=== PATIENT | female | born 1940 | race Caucasian/White ===

== ENCOUNTER 2024-05-02 22:36 | Emergency (ER) | payer MEDICARE, SELFPAY ==
--- NOTE | 2024-05-02 22:46 | CRLHL7_ITS ---
For Patients: As a result of the Cures Act, medical imaging exams and procedure reports are released immediately into your electronic medical record. You may view this report before your referring provider. If you have questions, please contact your health care provider. INDICATION: Trauma, fall. TECHNIQUE: CT cervical spine without contrast. COMPARISON: None. FINDINGS: Vertebrae: Alignment is normal. There are no fractures or suspicious bony lesions. Discs and facet joints: There are degenerative disc changes most severe at C4-C5 and C5-C6. There are multilevel degenerative changes in the facets. Extraspinal findings: Paraspinous soft tissues are unremarkable. IMPRESSION: 1. No acute fracture or traumatic subluxation of the cervical spine. 2. Multilevel degenerative spondylosis. Please note that all CT scans at this facility use dose modulation, iterative reconstruction, and/or weight-based dosing when appropriate to reduce radiation dose to as low as reasonably achievable. Dictated by Rehan Barton MD @ 05/03/2024 12:52:40 AM (Electronically Signed)
--- NOTE | 2024-05-02 22:46 | CRLHL7_ITS ---
For Patients: As a result of the Century Cures Act, medical imaging exams and procedure reports are released immediately into your electronic medical record. You may view this report before your referring provider. If you have questions, please contact your health care provider. INDICATION: Trauma, fall. TECHNIQUE: CT head without contrast. COMPARISON: None. FINDINGS: CSF spaces: Proportionate prominence of the ventricles and sulci, reflecting mild generalized cerebral volume loss. Brain parenchyma: The zafar-white differentiation is maintained. Patchy white matter low attenuation changes, nonspecific but likely reflecting mild chronic small vessel ischemic disease. No sign of mass, hemorrhage, or midline shift. Skull base and calvarium: The visualized paranasal sinuses and mastoid air cells demonstrate no acute or significant findings. The visualized orbits are grossly unremarkable. No skull fractures. IMPRESSION: No acute intracranial abnormality. Please note that all CT scans at this facility use dose modulation, iterative reconstruction, and/or weight-based dosing when appropriate to reduce radiation dose to as low as reasonably achievable. Dictated by Rehan Barton MD @ 05/03/2024 12:51:31 AM (Electronically Signed)
--- NOTE | 2024-05-02 22:46 | CRLHL7_ITS ---
For Patients: As a result of the Century Cures Act, medical imaging exams and procedure reports are released immediately into your electronic medical record. You may view this report before your referring provider. If you have questions, please contact your health care provider. INDICATION: Trauma. TECHNIQUE: Multiplanar CT examination of the chest was performed after the administration of 75 mL of Isovue 370 intravenous contrast. COMPARISON: None. FINDINGS: Lines/devices: Left anterior chest wall pacemaker pulse generator. Lower neck: The visualized thyroid is unremarkable. Cardiovascular: Contrast opacification of the pulmonary arterial tree is adequate. Borderline heart size. Normal thoracic aorta caliber. The main pulmonary artery is dilated measuring 3.3 cm. Moderate atherosclerotic calcifications of the aortic arch. Dense coronary arterial calcifications. No central pulmonary embolus. Mediastinum and lymph nodes: Unremarkable. No pathologic mediastinal or hilar lymphadenopathy by size criteria. Lungs: No focal consolidation. Dependent atelectasis. Linear bandlike opacification of the lung bases bilaterally, likely subsegmental atelectasis and/or scarring. Mild pulmonary vascular congestion and interstitial edema. Airways: Trachea remains patent and midline. Mild diffuse peribronchial wall thickening. Pleura: Small left pleural effusion. No pneumothorax. Chest wall: Unremarkable. Bones: Acute displaced fractures of the left 4th-9th ribs. The left 6th and 7th ribs are fractured at both their posterior and lateral aspects. Mild degenerative changes of the thoracic spine. Median sternotomy wires. Upper abdomen: Calcified splenic and hepatic granulomas. Otherwise, the visualized upper abdomen appears within normal limits. IMPRESSION: Acute displaced fractures of the left 4th through 9th ribs, with a small associated pleural effusion. No pneumothorax. The left 6 and 7th ribs are fractured at both the posterior and lateral aspects. Please note that all CT scans at this facility use dose modulation, iterative reconstruction, and/or weight-based dosing when appropriate to reduce radiation dose to as low as reasonably achievable. Dictated by Dean Delcid MD @ 05/03/2024 12:26:33 AM (Electronically Signed)
--- NOTE | 2024-05-02 22:47 | ED_ITS ---
HPI - General Adult General Date Seen: 05/02/24 Chief complaint: Fall/Minor Trauma Stated complaint: fell, hit head Time Seen by Provider: 05/02/24 22:39 Source: patient and family Mode of arrival: ambulatory Limitations: no limitations History of Present Illness HPI narrative: Patient is an 83-year-old woman, visiting here from [place]. She is anticoagulated secondary to history of atrial fibrillation. She had a fall tonight off couple of stairs, landing on her back in some rocks and pushes. She notes pain primarily in the left periscapular area, difficulty breathing due to pain. She did hit her head, denies loss of consciousness. Denies neck pain or severe headache. She does have some nausea. Denies back pain otherwise, denies extremity trauma. She notes that she is allergic to some antibiotic although she does not remember the name. She does have a history of a mitral valve repair but denies anticoagulation due to valve replacement. She does not smoke or drink. Related Data Home Medications ?Medication ?Instructions ?Recorded ?Confirmed rivaroxaban 10 mg tablet (Xarelto) 10 mg PO DAILY 05/02/24 05/02/24 Allergies Allergy/AdvReac Type Severity Reaction Status Date / Time No Known Drug Allergies Allergy Verified 05/02/24 22:59 Review of Systems Status of ROS: Reports: 10 or more systems reviewed and unremarkable except as noted in History and below [facility] Social History Smoking Status: Never smoker Second hand tobacco smoke exposure: No How often do you have a drink containing alcohol: never AUDIT-C Alcohol total score: 0 Non-prescribed substance use: denies use Exam Narrative: Exam Narrative: Primary survey: Airway: Patent. Breathing: Nonlabored. Lungs clear. Circulation: Pulses intact. No external bleeding. Disability: GCS 15. Secondary survey: Vital signs reviewed In general, an alert, nontoxic elderly woman. She does look uncomfortable. Head: Normocephalic, atraumatic. Eyes: Pupils are equal reactive. Extraocular movements full. ENT: No facial trauma. Dentition intact. Neck: No midline cervical tenderness. No anterior neck trauma. Chest: No visible signs of chest trauma. No tenderness to palpation. Heart regular rate and rhythm. Lungs clear bilaterally. Abdomen: No visible signs of trauma. Soft, nondistended, nontender to palpation. Back: No visible signs of trauma. Tenderness over the periscapular area and left posterior mid ribs. No crepitus or subcu air. Extremities: Atraumatic and nontender to palpation. Neurologic: Alert, conversant, moves all extremities to command. Skin: Warm and dry, no abrasions or lacerations. Const: Vital Signs, click to edit/add: Vital Signs - 24 hr 05/02/24 22:55 05/02/24 22:57 Temperature 98.1 F Pulse Rate [Right Pulse Oximeter] 86 Respiratory Rate 20 Blood Pressure [Ri ght Upper Arm] 148/78 H Pulse Oximetry 97 99 Oxygen Delivery Me thod Room Air Documenting provider has reviewed patient's vital signs: yes Course Course ED Course: Plan will be to establish an IV, give some morphine and Zofran for symptomatic control. I do think it is worthwhile at her age him with anticoagulation to scan her head and cervical spine as well as her chest to look for rib fractures, pulmonary contusion, hemorrhage etcetera. Patient's pain is somewhat improved after morphine although she still notes considerable pain. CT scan by my review showed multiple left posterior rib fractures as well as a little bit of pleural fluid, radiology reads scan as follows:FINDINGS: Lines/devices: Left anterior chest wall pacemaker pulse generator. Lower neck: The visualized thyroid is unremarkable. Cardiovascular: Contrast opacification of the pulmonary arterial tree is adequate. Borderline heart size. Normal thoracic aorta caliber. The main pulmonary artery is dilated measuring 3.3 cm. Moderate atherosclerotic calcifications of the aortic arch. Dense coronary arterial calcifications. No central pulmonary embolus. Mediastinum and lymph nodes: Unremarkable. No pathologic mediastinal or hilar lymphadenopathy by size criteria. Lungs: No focal consolidation. Dependent atelectasis. Linear bandlike opacification of the lung bases bilaterally, likely subsegmental atelectasis and/or scarring. Mild pulmonary vascular congestion and interstitial edema. Airways: Trachea remains patent and midline. Mild diffuse peribronchial wall thickening. Pleura: Small left pleural effusion. No pneumothorax. Chest wall: Unremarkable. Bones: Acute displaced fractures of the left 4th-9th ribs. The left 6th and 7th ribs are fractured at both their posterior and lateral aspects. Mild degenerative changes of the thoracic spine. Median sternotomy wires. Upper abdomen: Calcified splenic and hepatic granulomas. Otherwise, the visualized upper abdomen appears within normal limits. IMPRESSION: Acute displaced fractures of the left 4th through 9th ribs, with a small associated pleural effusion. No pneumothorax. The left 6 and 7th ribs are fractured at both the posterior and lateral aspects. Head CT by my review was negative, cervical spine in did not see any acute fractures. Head read by radiology is negative, cervical spine read as negative for any acute pathology, she has multilevel spondylosis. Given multiple rib fractures, I recommended transfer to a trauma facility. This required a couple of different phone calls to find bed availability, and I am told that there was no ambulance availability until the morning. Right now, she is hemodynamically stable, she is not requiring supplemental oxygen. Assuming she remains stable, plan will be to have her here in the ER overnight and then transfer in the morning. If there is any evidence of deterioration, would need to arrange for alternate transportation. Repeat hemoglobin ordered. She was accepted at [facility], they are aware of the delay. Update: Apparently an [facility] rig may be available to transfer patient. She had 4 mg of additional morphine for pain control, subsequently was placed on a little oxygen. Vital signs otherwise remain stable. Vital Signs Vital signs: Initial Vital Signs Pulse Oximetry 97 05/02/24 22:55 Vital Signs Pulse Oximetry 97 05/02/24 22:55 Temperature 98.1 F 05/02/24 22:57 Pulse Rate 86 05/02/24 22:57 Respiratory Rate 20 05/02/24 22:57 Blood Pressure 148/78 H 05/02/24 22:57 Pulse Oximetry 99 05/02/24 22:57 Oxygen Delivery Method Room Air 05/02/24 22:57 Medications Administered Medications: Generic Name Dose Route Start Last Admin Trade Name Freq PRN Reason Stop Dose Admin Morphine Sulfate 4 mg 05/03/24 00:57 05/03/24 01:02 Morphine 4 Mg/Ml Inj IVP 4 mg ONCE PRN Administration pain Discontinued Medications Generic Name Dose Route Start Last Admin Trade Name Freq PRN Reason Stop Dose Admin Morphine Sulfate 4 mg 05/02/24 22:45 05/02/24 22:54 Morphine 4 Mg/Ml Inj IVP 05/02/24 22:46 4 mg ONCE ONE Administration Ondansetron HCl 4 mg 05/02/24 22:45 05/02/24 22:54 Ondansetron 2 Mg/Ml Inj IVP 05/02/24 22:46 4 mg ONCE ONE Administration Medical Decision Making Lab Data Labs: Lab Results 05/02/24 05/02/24 Range/Units 22:50 22:54 WBC 7.62 (4.50-11.00) K/uL RBC 4.22 (4.00-5.20) m/uL Hgb 13.0 (12.0-16.0) gm/dL Hct 40.1 (33.0-51.0) % MCV 95 (80-100) fL MCH 31 (26-34) pg MCHC 32 (32-36) gm/dL RDW Coeff of Daysi 13.4 (11.5-15.5) % Plt Count 211 (140-440) K/uL Neut % (Auto) 50.5 (42.0-72.0) % Lymph % (Auto) 36.0 (20-44) % [place] % (Auto) 5.5 (0.0-11.0) % Eos % (Auto) 5.5 (0.0-7.0) % Baso % (Auto) 0.3 (0.0-3.0) % Neut # (Auto) 3.85 (1.7-7.0) K/uL Lymph # (Auto) 2.74 (0.90-2.90) K/uL [place] # (Auto) 0.40 (0.00-0.90) K/UL Eos # (Auto) 0.42 (0.00-0.50) K/uL Baso # (Auto) 0.02 (0.00-0.30) K/uL Abs Immat Gran (auto) 0.17 (0.00-0.30) K/uL Imm/Tot Granulo (auto) 2.2 % INR 2.15 H (0.91-1.10) Sodium 139 (135-149) mmol/L Potassium 4.1 (3.6-5.1) mmol/L Chloride 108 (96-114) mmol/L Carbon Dioxide 24 (20-32) mmol/L Anion Gap 7 (7-15) mEq/L BUN 29 (7-30) mg/dL Creatinine 1.1 (0.5-1.5) mg/dL Estimated Creat Clear 37.55 Estimated GFR 50 ml/min Glucose 139 H (60-115) mg/dL Calcium 9.1 (8.4-10.6) mg/dL POC Creatinine 1.2 (0.6-1.3) mg/dl Discharge Plan Discharge Clinical Impression: Closed traumatic displaced fracture of rib on left side Condition: Stable Prescriptions: No Action Xarelto 10 mg tablet 10 mg PO DAILY Follow Up/Referrals: Provider,Not a Local [Primary Care Provider] -
[2024-05-02] MEDS: MORPHINE 4 MG/ML INJ IVP (22:54)
[2024-05-02] MEDS: ONDANSETRON 2 MG/ML inj 4 MG IVP (22:54)
[2024-05-02 22:55] VITALS: O2SAT 97
[2024-05-02 22:56] LABS: Creatinine, Point-of-Care* 1.2 mg/dl (0.6-1.3)
[2024-05-02 22:57] VITALS: BP 148/78; PULSE 86; RESP 20; TEMP 36.7; O2SAT 99; BMI 27.9
[2024-05-02 22:59] LABS: Basophils Absolute Auto 0.02 K/uL (0.00-0.30); Basophils Percent Auto 0.3 % (0.0-3.0); Eosinophils Absolute Auto 0.42 K/uL (0.00-0.50); Eosinophils Percent Auto 5.5 % (0.0-7.0); Hematocrit 40.1 % (33.0-51.0); Immature Granulocytes Abs Auto 0.17 K/uL (0.00-0.30); Immature Granulocytes Pct Auto 2.2 %; Lymphocytes Absolute Auto 2.74 K/uL (0.90-2.90); Mean Corpuscular HGB Conc 32 gm/dL (32-36); Mean Corpuscular Hemoglobin 31 pg (26-34); Mean Corpuscular Volume 95 fL (80-100); Monocytes Percent Auto 5.5 % (0.0-11.0); Neutrophils Absolute Auto 3.85 K/uL (1.7-7.0); Neutrophils Percent Auto 50.5 % (42.0-72.0); Platelet Count* 211 K/uL (140-440); RDW Coefficient of Variation % 13.4 % (11.5-15.5); Red Blood Count 4.22 m/uL (4.00-5.20); White Blood Count* 7.62 K/uL (4.50-11.00)
[2024-05-02 23:06] LABS: Slide Review Reflex No
[2024-05-02 23:09] LABS: Chloride* 108 mmol/L (96-114); Potassium* 4.1 mmol/L (3.6-5.1); Sodium* 139 mmol/L (135-149)
[2024-05-02 23:12] LABS: Anion Gap 7 mEq/L (7-15); Blood Urea Nitrogen* 29 mg/dL (7-30); Carbon Dioxide* 24 mmol/L (20-32); Creatinine* 1.1 mg/dL (0.5-1.5); Est. Creatinine Clearance* 37.55; Estimated Glomerular Filt Rate 50 ml/min
[2024-05-02 23:13] LABS: Calcium* 9.1 mg/dL (8.4-10.6); Glucose* 139 mg/dL (60-115)
[2024-05-02 23:14] LABS: INR 2.15 (0.91-1.10); Prothrombin Time 25.6 Seconds
[2024-05-03] VITALS (8 sets, daily range): BP systolic 127–128; BP diastolic 52–56; PULSE 77–80; RESP 14–16; O2SAT 89–96
[2024-05-03] MEDS: MORPHINE 4 MG/ML INJ IVP (01:02)
== END 2024-05-03 01:50 | disposition short-term general hospital (02) ==
PROVIDERS: Emergency Provider Emergency Medicine
DX: S22.42XA Multiple fractures of ribs, left side, initial encounter for closed fracture (principal); W01.0XXA Fall on same level from slipping, tripping and stumbling without subsequent striking against object, initial encounter; Z13.89 Encounter for screening for other disorder
CPT/HCPCS: 36415; 70450; 71260; 72125; 80048; 82565; 85025; 85610; 94761; 96374; 96375; 96376; 99284; J2270; J2405; Q9967